=== PATIENT | female | born 1965 | race Caucasian/White ===

== ENCOUNTER 2024-10-10 20:21 | Emergency (ER) | payer MEDICAID ==
[~2024-10-10] VITALS: Ht 139.7 cm; Wt 95.0 kg
[2024-10-10 20:37] VITALS: O2SAT 99
[2024-10-10 21:45] VITALS: BP 166/69; PULSE 76; RESP 16; TEMP 98.4; O2SAT 100
[2024-10-10] MEDS ORDERED: MENT5LOZ MM (23:54)
== END 2024-10-11 00:38 | disposition home or self-care (01) ==
LOC: ER 20:21
DX: R05.9 Cough, unspecified (principal); Z20.822 Contact with and (suspected) exposure to COVID-19
CPT/HCPCS: 71045; 87426; 87804; 99284

== ENCOUNTER 2025-06-08 10:22 | Emergency (ER) | payer MEDICAID ==
[~2025-06-08] VITALS: Ht 149.9 cm; Wt 60.0 kg
[~2025-06-08 10:22] MED LIST: MENT5LOZ MM
[2025-06-08 10:26] VITALS: TEMP 36.8; O2SAT 98
[2025-06-08] MEDS: ACETAMINOPHEN 325MG TABLET PO ONE (11:28)
[2025-06-08] MEDS ORDERED: IBUP-1455 MT (12:07)
[2025-06-08 13:17] VITALS: BP 133/78; PULSE 89; RESP 18; O2SAT 100
== END 2025-06-08 13:18 | disposition home or self-care (01) ==
LOC: ER 10:22
DX: S82.002A Unspecified fracture of left patella, initial encounter for closed fracture (principal); I10 Essential (primary) hypertension; W01.0XXA Fall on same level from slipping, tripping and stumbling without subsequent striking against object, initial encounter; Y93.01 Activity, walking, marching and hiking; Y92.009 Unspecified place in unspecified non-institutional (private) residence as the place of occurrence of the external cause; Y99.8 Other external cause status
CPT/HCPCS: 29505; 73562; 99283